=== PATIENT | male | born 1960 | race Caucasian/White ===

== ENCOUNTER → 2020-08-31 13:45 | Outpatient (CLI) | payer BC, SELFPAY ==
--- NOTE | ~2020-08-31 | XR_ITS ---
XR abdomen/kub 1V 08/31/2020 14:51 INDICATION: Renal stone TECHNIQUE: KUB COMPARISON: CT dated 08/31/2020 FINDINGS: Bowel gas pattern is normal. Moderate colonic fecal loading. There is no evidence of free a ir, mass, organomegaly, ascites or obstruction. There is contrast in the kidneys, renal collecting sy stems and bladder which limits evaluation for renal or ureteral stones. The bones appear intact. IMPRESSION: 1: No acute abdominal abnormality identified. Reviewed, dictated and finalized at location A.
--- NOTE | ~2020-08-31 | CT_ITS ---
EXAMINATION: CT abdomen pelvis wo/w con DATE: 08/31/2020 14:36 INDICATION: Hematuria TECHNIQUE: Computed tomography (CT) of the abdomen and pelvis was performed without and with 130 cc O mnipaque 350 intravenous contrast. The dose-length product was 2487.09 mGy-cm. Automated exposure con trol and iterative reconstruction technique were employed. COMPARISON: CT dated 06/08/2017 FINDINGS: Lung bases are unremarkable. No significant pleural or pericardial effusion. Heart size is normal. Small hiatal hernia. Status post cholecystectomy. Nonobstructing right renal stones at the lower pole. 1.4 cm right renal cyst. Nonobstructive bowel ga s pattern. The liver, spleen, pancreas, adrenal glands are unremarkable. There are bilateral renal cy sts. There are additional small subcentimeter hypodensities of the right kidney, too small to charact erize. Bladder is unremarkable. Stable round calcification in the prostate gland, likely benign. Mild lumbar spondylosis. IMPRESSION: 1. Nonobstructing right nephrolithiasis. Reviewed, dictated and finalized at location A.
[2020-08-31 14:14] LABS: Estimated Glomerular Filt Rate > 60
== END ==
PROVIDERS: PCP Family Medicine; Visit Provider Family Medicine
DX: N20.0 Calculus of kidney (principal); R31.9 Hematuria, unspecified
CPT/HCPCS: 74018; 74178; Q9967

== ENCOUNTER 2020-12-06 06:52 | Outpatient (NON) | payer BC, SELFPAY ==
[2020-12-06 19:18] LABS: SARS-CoV-2 RNA PCR Negative
== END 2020-12-06 06:53 ==
PROVIDERS: PCP Family Medicine; Visit Provider Family Medicine
DX: Z20.822 Contact with and (suspected) exposure to COVID-19 (principal); R50.9 Fever, unspecified
CPT/HCPCS: C9803; U0003; U0005

== ENCOUNTER → 2020-12-09 06:51 | Outpatient (CLI) | payer BC, SELFPAY ==
[2020-12-09 18:11] LABS: SARS-CoV-2 RNA PCR Negative
== END ==
PROVIDERS: PCP Family Medicine; Visit Provider Family Medicine
DX: R07.89 Other chest pain (principal); R05 Cough; R53.83 Other fatigue; R50.9 Fever, unspecified; R06.02 Shortness of breath; Z20.822 Contact with and (suspected) exposure to COVID-19
CPT/HCPCS: C9803; U0003; U0005

== ENCOUNTER → 2020-12-09 16:31 | Outpatient (CLI) | payer BC, SELFPAY ==
--- NOTE | ~2020-12-09 | XR_ITS ---
EXAMINATION: XR chest 2V DATE: 12/09/2020 16:40 INDICATION: Cough. TECHNIQUE: Frontal and lateral views of the chest were obtained. COMPARISON: CT abdomen and pelvis 08/31/2020 FINDINGS: The chest demonstrates clear lungs without pneumonia, pleural effusion, or pneumothorax. Th e heart size is normal. There are changes of disc replacement at C6-C7. IMPRESSION: 1. No acute cardiopulmonary disease. Reviewed, dictated and finalized at location A. M48/M60 [employer]
== END ==
PROVIDERS: Visit Provider Physician Assistant
DX: R05 Cough (principal)
CPT/HCPCS: 71046

== ENCOUNTER 2023-12-31 09:55 | Outpatient (CLI) | payer OTHER, SELFPAY ==
[2023-12-31 18:45] LABS: Basophils Absolute Auto 0.1 K/mm3 (0.0-0.1); Basophils Percent Auto 0.9 % (0.2-1.2); Eosinophils Absolute Auto 0.2 K/mm3 (0-0.3); Eosinophils Percent Auto 3.3 % (0-4.4); Hematocrit 47.1 % (42.0-52.0); Hemoglobin 15.5 g/dL (14.0-18.0); Immature Granulocyte Absolute 0.02 K/mm3 (0.00-0.031); Immature Granulocyte Percent A 0.4 % (0-0.5); Immature Platelet Fraction Pct 17.6 % (0.9-11.2); Lymphocytes Absolute Auto 1.55 K/mm3 (0.9-3.2); Lymphocytes Percent Auto 28.7 % (18.3-44.2); Mean Corpuscular HGB Conc 32.9 g/dl (32-36); Mean Corpuscular Hemoglobin 28.2 pg (26-34); Mean Corpuscular Volume 85.8 fl (80-100); Mean Platelet Volume 13.1 fl (7.4-10.4); Monocytes Absolute Auto 0.3 K/mm3 (0.1-0.6); Monocytes Percent Auto 6.1 % (2.6-8.5); Neutrophils Absolute Auto 3.3 K/mm3 (1.3-6.7); Neutrophils Percent Auto 60.6 % (45.5-73.1); Platelet Count Result 135 k/mm3 (150-375); Red Blood Count 5.49 M/mm3 (4.6-6.20); Red Cell Distribution Width 13.2 % (11.5-14.5); White Blood Count 5.4 K/mm3 (4.5-10.0)
[2023-12-31 18:54] LABS: LDL Cholesterol Direct 101 mg/dL
[2023-12-31 19:08] LABS: Prostate Specific Antigen 1.1 ng/mL (< OR = 4.0)
[2023-12-31 19:10] LABS: Alanine Aminotransferase 27 U/L (6-50); Albumin Level 3.7 g/dL (3.5-5.1); Alkaline Phosphatase 85 U/L (38-126); Anion Gap 7 mmol/L (8-16); Aspartate Amino Transferase 30 U/L (17-59); Bilirubin,Total 0.7 mg/dL (0.2-1.3); Blood Urea Nitrogen 18 mg/dL (9-20); Calcium 8.7 mg/dL (8.4-10.2); Carbon Dioxide 25 mmol/L (22-30); Chloride 97 mmol/L (98-107); Cholesterol 225 mg/dL (0-200); Estimated Glomerular Filt Rate > 60; Glucose 514 mg/dL (65-110); HDL Direct 24 mg/dL; Magnesium 2.1 mg/dL (1.6-2.3); Potassium 4.3 mmol/L (3.4-5.0); Sodium 129 mmol/L (137-145); Triglycerides 461 mg/dL (<150)
[2023-12-31 20:09] LABS: Iron 97 ug/dL (49-181)
[2023-12-31 20:19] LABS: Percent Iron Saturation 35 % (20-50)
[2023-12-31 20:32] LABS: Hemoglobin A1C > 14.0 % (<5.7); Vitamin D 25 Hydroxy 18.3 ng/mL
== END 2023-12-31 09:56 | disposition home or self-care (01) ==
LOC: ANHGOSHLAB 09:57
PROVIDERS: PCP Family Medicine; Visit Provider Nurse Practitioner Family
DX: L91.8 Other hypertrophic disorders of the skin (principal); R35.0 Frequency of micturition; R03.0 Elevated blood-pressure reading, without diagnosis of hypertension; Z13.1 Encounter for screening for diabetes mellitus; E55.9 Vitamin D deficiency, unspecified; L85.3 Xerosis cutis; R73.01 Impaired fasting glucose; Z12.5 Encounter for screening for malignant neoplasm of prostate; R25.2 Cramp and spasm
CPT/HCPCS: 36415; 80053; 80061; 82306; 82728; 83036; 83540; 83550; 83735; 84153; 84443; 85025; 85055; G0103

== ENCOUNTER 2024-02-13 14:45 | Outpatient (RCR) | payer OTHER, SELFPAY ==
[2024-01-28 14:39] VITALS: BMI 33.9
[2024-02-13 14:45] VITALS: BMI 33.9
== END 2024-04-21 14:08 | disposition home or self-care (01) ==
LOC: ANHDMC 14:45
PROVIDERS: PCP Family Medicine; Visit Provider Family Medicine
DX: E11.9 Type 2 diabetes mellitus without complications (principal); R03.0 Elevated blood-pressure reading, without diagnosis of hypertension; Z71.3 Dietary counseling and surveillance
CPT/HCPCS: 97802; 97803